=== PATIENT | male | born 1955 | race Caucasian/White ===

== ENCOUNTER 2017-01-08 09:40 | Emergency (ER) | payer OTHER ==
[2017-01-08 09:44] VITALS: BP 145/66; PULSE 114; RESP 18; TEMP 97.7
--- NOTE | 2017-01-08 10:06 | ED ---
General Adult HPI - General Chief complaint: Extremity Injury, Upper Stated complaint: RT SHOULDER PAIN Time Seen by Provider: 01/08/17 09:52 Source: patient, RN notes reviewed Mode of arrival: ambulatory Limitations: no limitations - History of Present Illness Initial comments: 61-year-old male presents to the emergency department with a chief complaint of right shoulder pain. Patient states that on or Sunday he fell as if his shoulder just kind of popped and since she's had pain and difficulty moving the shoulder. Patient states he was just working he does not remember any specific injury. Patient states that they called Dr. Breen and he has an appointment tonight. Patient states that he is just in a lot of discomfort so he thought that he should be evaluated.Patient denies any recent fever, chills, shortness of breath, chest pain, back pain, abdominal pain, nausea vomiting, numbness or tingling, dysuria or hematuria, constipation or diarrhea, headaches or visual changes, or any other current symptoms. - Related Data Home Medications Medication Instructions Recorded Confirmed Bioflex 1 tab PO DAILY 01/25/15 01/27/15 Clopidogrel Bisulfate [Clopidogrel] 75 mg PO DAILY 01/25/15 01/27/15 Metoprolol Tartrate 50 mg PO DAILY 01/25/15 01/27/15 Previous Rx's Medication Instructions Recorded Aspirin 325 mg PO DAILY #60 tab 01/28/15 Atorvastatin [Lipitor] 80 mg PO HS #30 tab 01/28/15 Clopidogrel [Plavix] 75 mg PO DAILY #30 tab 01/28/15 Lisinopril [Zestril] 20 mg PO DAILY #60 tab 01/28/15 Metoprolol Tartrate [Lopressor] 50 mg PO DAILY #60 tab 01/28/15 Nitroglycerin Sl Tabs [Nitrostat] 0.4 mg SUBLINGUAL Q5M PRN #25 tab 01/28/15 Allergies Allergy/AdvReac Type Severity Reaction Status Date / Time No Known Allergies Allergy Verified 01/08/17 09:43 Review of Systems ROS Statement: Those systems with pertinent positive or pertinent negative responses have been documented in the HPI. ROS Other: All systems not noted in ROS Statement are negative. Past Medical History Past Medical History: Blood Disorder, Coronary Artery Disease (CAD), Hyperlipidemia, Hypertension, Myocardial Infarction ([place]), Skin Disorder Additional Past Medical History / Comment(s): PSORIASIS. VARICOSE VEINS. SAW DR STEPHENS RECENTLY R/T SEVERELY ELEV WBC, POSS CCL, BUT NO CURRENT DIAGNOSIS OR TX ; DR Edwin THOMAS AWARE. Last Myocardial Infarction Date:: EST History of Any Multi-Drug Resistant Organisms: None Reported Past Surgical History: Heart Catheterization With Stent, Joint Replacement Additional Past Surgical History / Comment(s): TOTAL DIMA HIPS. STENT X1. Past Anesthesia/Blood Transfusion Reactions: No Reported Reaction Date of Last Stent Placement:: EST Past Psychological History: No Psychological Hx Reported Smoking Status: Unknown if ever smoked Past Alcohol Use History: Occasional - Past Family History Sister(s) Family Medical History: Cancer Father Sister(s) Additional Family Medical History / Comment(s): CARDIAC PROB Mother Additional Family Medical History / Comment(s): CARDIAC HX General Exam - General Exam Comments Initial Comments: General: The patient is awake and alert, in no distress, and does not appear acutely ill. Neck: The neck is supple, there is no tenderness. Cardiovascular: There is a regular rate and rhythm. No murmur, rub or gallop is appreciated. Respiratory: Lungs are clear to auscultation, respirations are non-labored, breath sounds are equal. No wheezes, stridor, rales, or rhonchi. Musculoskeletal: sensation intact with 2+ pulses throughout the right lower extremity. Full range of motion of right wrist and elbow. Patient has normal range of motion of the right shoulder and does appear to have a deformity. Some tenderness noted. No skin trauma. Neurological: CN II-XII intact, There are no obvious motor or sensory deficits. Coordination appears grossly intact. Speech is normal. Skin: Skin is warm and dry and no rashes or lesions are noted. Psychiatric: Normal mood and affect. Limitations: no limitations Course Vital Signs 01/08/17 09:41 Temperature 97.7 F Pulse Rate 114 H Respiratory 18 Rate Blood Pressure 145/66 O2 Sat by Pulse 98 Oximetry Medical Decision Making - Medical Decision Making 61-year-old male presents to the emergency room chief complaint of right shoulder pain.at this time x-ray of the shoulder is reviewed. At this time the is not any acute new process. This time we discussed continued follow-up with Dr. Breen. Patient was given a Narco here prior discharge. Discussed return parameters all patient's questions. He stated he understood and he is given plan. He will be discharged home. - Radiology Data Radiology results: report reviewed, image reviewed Disposition Clinical Impression: Right shoulder pain Disposition: HOME SELF-CARE Condition: Stable Instructions: Shoulder Sprain (ED) Additional Instructions: Please use medication as discussed. Please follow up with family doctor if symptoms have not improved over the next two days. Please return to the emergency room if your symptoms increase or worsen or for any other concerns. Referrals: Temi Cunningham MD [STAFF PHYSICIAN] - 1-2 days Time of Disposition: 10:39
--- NOTE | 2017-01-08 10:31 | XR ---
EXAMINATION TYPE: XR shoulder complete RT DATE OF EXAM: 01/08/2017 COMPARISON: NONE HISTORY: Pain TECHNIQUE: Three views are submitted. FINDINGS: The osseous structures are intact. There is no acute fracture or dislocation. Hypertrophic change of the AC joint noted. Bony density along the greater tuberosity chronic. May be related to previous tr auma. IMPRESSION: 1. Arthropathy of the AC joint 2. Chronic appearing deformity of the greater tuberosity correlate for history of previous trauma.
[2017-01-08] MEDS ORDERED: HYDROcodone/APAP 5-325MG 1 EACH TAB PO STA (10:37)
== END 2017-01-08 11:04 | disposition home or self-care (01) ==
LOC: EC 09:40
DX: M25.511 Pain in right shoulder (principal); I25.2 Old myocardial infarction; I10 Essential (primary) hypertension; Z96.643 Presence of artificial hip joint, bilateral; Z79.01 Long term (current) use of anticoagulants; Z79.899 Other long term (current) drug therapy
CPT/HCPCS: 99283

== ENCOUNTER 2017-01-11 18:55 | Inpatient (IN) | payer OTHER ==
--- NOTE | 2017-01-11 20:08 | ED ---
Weakness HPI - General Chief complaint: Weakness Stated complaint: Weakness Time Seen by Provider: 01/11/17 19:03 Source: patient Mode of arrival: EMS Limitations: no limitations - History of Present Illness Initial comments: 61 years old male was transferred to us from [facility], he presented there for generalized weakness he stated he was in his house was unable to move much he was running fever he felt weak he voided in the bed he already also moved his bowels in the bed. He is very poor historian he was incarcerated for about a year he got out of the children. No cording to the emergency ER his blood work shows very high white count white count is 291,000 though patient himself denies any kind of leukemia history he had a high fever he was tachycardic to give him Zosyn IV and also was given some Cardizem his lactate was quite elevated more than 4 digits of fluids today and they rechecked his lactate is lactate has dropped down to 3.1. On arrival now he feels as well better but still generally weak denies any headache no chest pain no shortness of breath no abdominal pain no symptoms of TIA or CVA either - Related Data Home Medications Medication Instructions Recorded Confirmed Bioflex 1 tab PO DAILY 01/25/15 01/27/15 Clopidogrel Bisulfate [Clopidogrel] 75 mg PO DAILY 01/25/15 01/27/15 Metoprolol Tartrate 50 mg PO DAILY 01/25/15 01/27/15 Previous Rx's Medication Instructions Recorded Aspirin 325 mg PO DAILY #60 tab 01/28/15 Atorvastatin [Lipitor] 80 mg PO HS #30 tab 01/28/15 Clopidogrel [Plavix] 75 mg PO DAILY #30 tab 01/28/15 Lisinopril [Zestril] 20 mg PO DAILY #60 tab 01/28/15 Metoprolol Tartrate [Lopressor] 50 mg PO DAILY #60 tab 01/28/15 Nitroglycerin Sl Tabs [Nitrostat] 0.4 mg SUBLINGUAL Q5M PRN #25 tab 01/28/15 Allergies Allergy/AdvReac Type Severity Reaction Status Date / Time No Known Allergies Allergy Verified 01/08/17 09:43 Review of Systems ROS Statement: Those systems with pertinent positive or pertinent negative responses have been documented in the HPI. ROS Other: All systems not noted in ROS Statement are negative. Past Medical History Past Medical History: Blood Disorder, Coronary Artery Disease (CAD), Hyperlipidemia, Hypertension, Myocardial Infarction ([place]), Skin Disorder Additional Past Medical History / Comment(s): PSORIASIS. VARICOSE VEINS. SAW DR STEPHENS RECENTLY R/T SEVERELY ELEV WBC, POSS CCL, BUT NO CURRENT DIAGNOSIS OR TX ; DR Edwin THOMAS AWARE. Last Myocardial Infarction Date:: EST History of Any Multi-Drug Resistant Organisms: None Reported Past Surgical History: Heart Catheterization With Stent, Joint Replacement Additional Past Surgical History / Comment(s): TOTAL DIMA HIPS. STENT X1. Past Anesthesia/Blood Transfusion Reactions: No Reported Reaction Date of Last Stent Placement:: EST Past Psychological History: No Psychological Hx Reported Smoking Status: Never smoker Past Alcohol Use History: Unable to Obtain - Past Family History Sister(s) Family Medical History: Cancer Father Sister(s) Additional Family Medical History / Comment(s): CARDIAC PROB Mother Additional Family Medical History / Comment(s): CARDIAC HX General Exam - General Exam Comments Initial Comments: General: The patient is awake and alert, GCS is 15 at times he seems a bit confused Skin: Skin is warm and dry and no rashes or lesions are noted. Eye: Pupils are equal, round and reactive to light, extra-ocular movements are intact; there is normal conjunctiva bilaterally. Ears, nose, mouth and throat: There are moist mucous membranes and no oral lesions. Neck: The neck is supple, there is no tenderness or JVD. Cardiovascular: There is a regular rate and rhythm. No murmur, rub or gallop is appreciated. Respiratory: To auscultation bilateral, decreased breath sounds bilateral Gastrointestinal: Soft, non-distended, non-tender abdomen without masses or organomegaly noted. There is no rebound or guarding present. Bowel sounds are unremarkable. Back: There is no tenderness to palpation in the midline. There is no obvious deformity. Musculoskeletal: Normal ROM, no tenderness, There is no pedal edema. There is no calf tenderness or swelling. No cords were appreciated. Neurological: CN II-XII intact, Cranial nerves III through XII are intact. There are no obvious motor or sensory deficits. Coordination appears grossly intact. Speech is normal. Psychiatric: Cooperative, appropriate mood & affect, normal judgment. Limitations: no limitations Course Vital Signs 01/11/17 18:58 Temperature 99.4 F Pulse Rate 88 Respiratory 20 Rate Blood Pressure 106/58 EKG is a sinus sinus rhythm now medical rate is 94 TN interval is 120 QRS duration duration is 90 QT/QTc is 378/472 and 50 mL EKG showed inverted T-wave in lead 3 T-wave flattening in lead 2 and T wave flattening in aVF as well rest of the leads do not show any significant abnormality no ST elevation noticed this EKG Good his labs are done from [facility] creatinine is 1.5 yesterday 727 2331.2 troponin is elevated in [facility] on the both were elevated lactate at 3.3 prior to that it was even higher did for INR 1.3 white count is 291 urinalysis is negative EKG was without any STEMI - Reevaluation(s) Reevaluation #1: 01/11/17 20:12 I spoke with the Dr. Mccurdy inclusion paraeducator physician for [facility], he will see the patient and decide whether patient needs to go on heparin at this point I have ordered another troponin here and obvious dental consult cardiology along with the Dr. Delaney for his elevated white count and Dr. De Anda for elevated LFTs Disposition Clinical Impression: Fever, Sepsis, Elevated troponin, Elevated LFTs, Leukocytosis Disposition: ADMITTED IP TO THIS [facility] Condition: Good Referrals: None,Stated [Primary Care Provider] - 1-2 days
[2017-01-11] MEDS ORDERED: PIPERACILLIN-TAZOBACTAM 3.375 GM in DEXTROSE/WATER 1 50ML.BAG IVPB STA (20:14)
[2017-01-11] MEDS ORDERED: SODIUM CHLORIDE 0.9% 1,000 ML IV ONE ×3 (20:15→22:47)
[2017-01-11] MEDS ORDERED: ASPIRIN 81 MG PO STA (20:20)
[2017-01-11] MEDS ORDERED: NITROGLYCERIN OINT 1 INCH/GM PACKET TOPICAL STA (20:21)
[2017-01-11] MEDS ORDERED: NITROGLYCERIN SL TABS 0.4 MG TAB SUBLINGUAL PRN (20:22)
[2017-01-11 20:55] LABS: Calcium 6.7 mg/dL (8.4-10.2); Potassium 4.1 mmol/L (3.5-5.1); Total Bilirubin 1.1 mg/dL (0.2-1.3); Total Protein 5.1 g/dL (6.3-8.2)
[2017-01-11 20:57] LABS: INR 1.3 (<1.2); Prothrombin Time 12.6 sec (9.0-12.0)
[2017-01-11] MEDS ORDERED: ACETAMINOPHEN TAB 500 MG TAB PO STA (20:59)
[2017-01-11] MEDS ORDERED: ATORVASTATIN 80 MG TAB PO SCH (21:00)
[2017-01-11 21:01] LABS: Anisocytosis Slight; Aty Lym Flag Marked; CH 31.1; CHCM 32.8; HDW 2.96; HGB 8.7 gm/dL (13.0-17.5); MCH 34.6 pg (25.0-35.0); MCHC 36.4 g/dL (31.0-37.0); MCV 95.2 fL (80.0-100.0); Mean Platelet Volume 8.2; RBC 2.52 m/uL (4.30-5.90); RDW 17.1 % (11.5-15.5); WBC (Perox) 209.1
[2017-01-11 21:09] LABS: WBC 231.6 k/uL (3.8-10.6)
--- NOTE | 2017-01-11 21:21 | XR ---
EXAMINATION TYPE: XR chest 2V DATE OF EXAM: 01/11/2017 COMPARISON: 12/17/2014 HISTORY: Weakness and pain TECHNIQUE: Frontal and lateral views of the chest are obtained. FINDINGS: There is coarsening of pulmonary interstitial markings. Heart is mildly enlarged. There ar e chest leads. I see no definite pleural effusion. IMPRESSION: There is new mild pulmonary interstitial edema compared to old exam that could relate to mild heart failure or interstitial pneumonia.
--- NOTE | 2017-01-11 21:22 | XR ---
EXAMINATION TYPE: XR shoulder limited RT DATE OF EXAM: 01/11/2017 COMPARISON: NONE HISTORY: Shoulder pain TECHNIQUE: 2 views FINDINGS: There is spurring at the greater tuberosity of the humerus. There is spurring at the AC keira nt. I see no fracture nor dislocation. IMPRESSION: No acute abnormality of the right shoulder.
[2017-01-11] MEDS ORDERED: LEVOFLOXACIN 500MG-D5W PMX 500 MG in DEXTROSE/WATER 1 100ML.BAG IVPB STA (21:36)
[2017-01-11 21:38] LABS: Add Differential Manual Differential
[2017-01-11 21:40] LABS: Nucleated Red Blood Cells 0 /100 WBC (0-0); Total Cells Counted 200
[2017-01-11 21:41] LABS: Manual Review Performed
--- NOTE | 2017-01-11 22:02 | US ---
EXAMINATION TYPE: US abdomen complete DATE OF EXAM: 01/11/2017 COMPARISON: NONE CLINICAL HISTORY: Pain. EXAM MEASUREMENTS: Liver Length: 18.9 cm Gallbladder Wall: 0.25 cm CBD: 0.29 cm Spleen: 12.7 cm Right Kidney: 11.9 x 3.9 x 5.2 cm Left Kidney: 11.4 x 5.6 x 5.2 cm Pancreas: Obscured by bowel gas Liver: Increased attenuation Gallbladder: wnl Evidence for sonographic Littlejohn's sign: No CBD: wnl Spleen: wnl Right Kidney: No hydronephrosis or masses seen Left Kidney: No hydronephrosis or masses seen Upper IVC: wnl Abd Aorta: wnl Somewhat limited study due to bowel gas and patient unable to roll or hold breath. IMPRESSION: Negative complete abdominal sonogram. No gallstones or dilated ducts.
--- NOTE | 2017-01-11 22:07 | P.HPIM ---
History of Present Illness H&P Date: 01/11/17 (8:30 PM) Chief Complaint: Generalized weakness This is a 61-year-old male with a history of CLL diagnosed 2 years ago, coronary artery disease with 5 stents insertion who was brought in by EMS due to severe generalized weakness and inability to get out from the bed today. 2 years prior to this admission patient was diagnosed with CLL when prior to cardiac catheterization he was noted to have white blood cell count 50,000 with predominance of lymphocytes. At that time close monitoring without active treatment was recommended by hematology. Around that time he underwent cardiac catheterization with insertion of stents in RCA and LAD he had some residual disease in circumflex artery. One year prior to this admission patient was jailed and he was released about a month ago. Patient states that he has not been receiving any medical care in nor he has been seeing any physicians for that time. He can not being adherent to his medications as well. One month prior to admission patient started developing some musculoskeletal pain and aches and most pronounced late in his right shoulder in the lower back. This has been accompanied by easy fatigability and loss of stamina. 3 weeks prior to the admission his right shoulder started hurting even more became swollen and warm and stiff. Patient soon was not able to make any movements in that shoulder due to the pain. Patient reports this to happen suddenly overnight and he could not recall any trauma injury or any other precipitating events. Since then his shoulder beginning progressively worse. He did not try any particular medications for this. He did not find any alleviating factors this. Over the last few days the swelling and pain progressed and swelling developed in his whole right upper extremity. He also noticed pain in his left shoulder without swelling, pain in his lower back knees. For the last 3 days patient been feeling that every bone and muscle is Dennis is been hurting and he was not able to get out of the bed due to severe generalized weakness. He was drinking water but not able to have any food. His be having some night sweats but no Reiger's chills or subjective fevers. He did not experience any chest pain, shortness of breath, abdominal pain, diarrhea, sore throat, headache, blurry vision. Today his friend came by and found him in the situation and since he could not get him up from the bed EMS was called and patient was last prefers to emergency department in outside institution and from there he was transferred to our institution for further workup. In the emergency department he was found to be tachycardic in 120s, with lower blood pressure. His blood work revealed white blood cell count of 213 with predominance of lymphocytes mildly elevated creatinine and BUNs, normal potassium, elevated liver enzymes, elevated troponins. His EKG was not conclusive on any ischemia and he was chest pain or shortness of breath.. Patient was then given vancomycin and Zosyn emergency department lots of IV fluids and admitted for further workup. Review of Systems Constitutional: Reports as per HPI, Reports anorexia, Reports chills, Reports chronic pain, Reports fatigue Eyes: denies blurred vision Ears, nose, mouth and throat: Reports as per HPI Cardiovascular: Reports as per HPI Respiratory: Reports as per HPI Gastrointestinal: Reports as per HPI Genitourinary: Denies hematuria, Denies polyuria, Denies urinary frequency, Denies urinary hesitancy, Denies urinary retention Musculoskeletal: Reports as per HPI Integumentary: Denies pruritus, Denies rash Neurological: Denies burning pain, Denies change in mentation, Denies confusion , Denies double vision Psychiatric: Denies depression Endocrine: Denies cold intolerance, Denies heat intolerance, Denies polyphagia, Denies polyuria Hematologic/Lymphatic: Denies easy bleeding, Denies easy bruising, Denies lymphadenopathy Past Medical History Past Medical History: Blood Disorder, Coronary Artery Disease (CAD), Hyperlipidemia, Hypertension, Myocardial Infarction ([place]), Skin Disorder Additional Past Medical History / Comment(s): PSORIASIS. VARICOSE VEINS. SAW DR STEPHENS RECENTLY R/T SEVERELY ELEV WBC, POSS CCL, BUT NO CURRENT DIAGNOSIS OR TX ; DR Edwin THOMAS AWARE. Last Myocardial Infarction Date:: EST History of Any Multi-Drug Resistant Organisms: None Reported Past Surgical History: Heart Catheterization With Stent, Joint Replacement Additional Past Surgical History / Comment(s): TOTAL DIMA HIPS. STENT X1. Past Anesthesia/Blood Transfusion Reactions: No Reported Reaction Date of Last Stent Placement:: EST Past Psychological History: No Psychological Hx Reported Smoking Status: Never smoker Past Alcohol Use History: Unable to Obtain - Past Family History Sister(s) Family Medical History: Cancer Father Sister(s) Additional Family Medical History / Comment(s): CARDIAC PROB Mother Additional Family Medical History / Comment(s): CARDIAC HX Medications and Allergies Home Medications Medication Instructions Recorded Confirmed Type Clopidogrel Bisulfate [Clopidogrel] 75 mg PO DAILY 01/25/15 01/11/17 History Lisinopril [Zestril] 20 mg PO DAILY #60 tab 01/28/15 01/11/17 Rx Metoprolol Tartrate [Lopressor] 50 mg PO DAILY #60 tab 01/28/15 01/11/17 Rx Nitroglycerin Sl Tabs [Nitrostat] 0.4 mg SUBLINGUAL Q5M PRN #25 tab 01/28/15 Rx [id number] 1 tab PO Q4HR PRN 01/11/17 01/11/17 History [Excedrin] Naproxen Sodium [Aleve] 220 mg PO DAILY PRN 01/11/17 01/11/17 History Allergies Allergy/AdvReac Type Severity Reaction Status Date / Time No Known Allergies Allergy Verified 01/11/17 20:28 Physical Exam Vitals: Vital Signs Temp Pulse Resp BP Pulse Ox 01/11/17 21:23 100.3 F H 96 20 92 L 01/11/17 20:26 103.7 F H 100 20 103/67 92 L 01/11/17 18:58 99.4 F 88 20 106/58 Intake and Output 01/11/17 01/11/17 01/11/17 06:59 14:59 22:59 Other: Weight 68.039 kg Patient Weight 01/12/17 06:59 Weight 68.039 kg At the time of examination his heart rate was in the 80s and regular blood pressure 118 and saturating 96% on 2 L nasal cannula he was afebrile - EENT Eyes: no anicteric sclerae, EOMI, PERRLA - Neck Neck: no lymphadenopathy, normal ROM, no thyromegaly - Respiratory Respiratory: bilateral: CTA - Cardiovascular Rhythm: regular Heart sounds: normal: S1, S2 - Gastrointestinal General gastrointestinal: no hepatomegaly, normal bowel sounds, no organomegaly , soft - Integumentary Integumentary: no jaundiced, no rash - Neurologic Neurologic: CNII-XII intact (Possibly mild facial droop on the left) - Musculoskeletal Could not be tested due to the pain in his joints Right shoulder on inspection severely swollen warm to touch erythematosus edema extending all the way down below the elbow range of motion impossible to perform due to the severe pain. To palpation anteriorly and posteriorly to the shoulder focal pain no pain along the biceps tendon Results CBC & Chem 7: 01/11/17 20:25 01/11/17 20:25 Labs: Abnormal Lab Results - Last 24 Hours (Table) 01/11/17 01/11/17 01/11/17 Range/Units 20:25 20:25 20:25 WBC 231.6 H* (3.8-10.6) k/uL RBC 2.52 L (4.30-5.90) m/uL Hgb 8.7 L (13.0-17.5) gm/dL Hct 24.0 L (39.0-53.0) % RDW 17.1 H (11.5-15.5) % PT (9.0-12.0) sec INR (<1.2) Sodium 129 L (137-145) mmol/L Carbon Dioxide 20 L (22-30) mmol/L BUN 49 H (9-20) mg/dL Creatinine 1.60 H (0.66-1.25) mg/dL Glucose 102 H (74-99) mg/dL Calcium 6.7 L (8.4-10.2) mg/dL AST 686 H (17-59) U/L ALT 314 H (21-72) U/L Troponin I 0.088 H* (0.000-0.034) ng/mL Total Protein 5.1 L (6.3-8.2) g/dL Albumin 2.0 L (3.5-5.0) g/dL 01/11/17 Range/Units 20:25 WBC (3.8-10.6) k/uL RBC (4.30-5.90) m/uL Hgb (13.0-17.5) gm/dL Hct (39.0-53.0) % RDW (11.5-15.5) % PT 12.6 H (9.0-12.0) sec INR 1.3 H (<1.2) Sodium (137-145) mmol/L Carbon Dioxide (22-30) mmol/L BUN (9-20) mg/dL Creatinine (0.66-1.25) mg/dL Glucose (74-99) mg/dL Calcium (8.4-10.2) mg/dL AST (17-59) U/L ALT (21-72) U/L Troponin I (0.000-0.034) ng/mL Total Protein (6.3-8.2) g/dL Albumin (3.5-5.0) g/dL Thrombosis Risk Factor Assmnt - DVT/VTE Prophylaxis DVT/VTE Prophylaxis: Pharmacologic Prophylaxis ordered Assessment and Plan (1) SIRS (systemic inflammatory response syndrome) Narrative/Plan: This is 61-year-old gentleman with multiple medical condition including CLL hyper leukocytosis presenting with fever and tachycardia generalize musculoskeletal pain severely swollen right shoulder and generalized weakness and inability to move due to muscular skeletal pain. Septic workup has been ordered and we will continue for now broad-spectrum antibiotics since patient is immunocompromised and pauses severe risk for sepsis. On the other side there is a possibility of actually patient presenting with polyarticular gout in the background of hyperleukocytosis and rapid development of his right shoulder pain and swelling. Patient will be continued on IV hydration and I will obtain uric acid level. X-ray of right shoulder pending, orthopedic consultants. May need to get further imaging of his right shoulder base in the further evaluation. Also given the extent of swelling of the right upper extremity I will obtain Doppler ultrasound to evaluate for DVT. Check phosphorus level for concern of PLMS Status: Acute (2) Right shoulder pain Narrative/Plan: As mentioned above septic versus inflammatory arthritis worked up. Continue antibiotics, orthopedic service consulted, will obtain uric acid, pain control, may need MRI of the shoulder but will depend on the type of the stents he has, we'll consider NSAIDs versus colchicine. There is mention ultrasound will be ordered for DVT workup Status: Acute (3) Elevated troponin Narrative/Plan: In a patient with severe coronary artery disease in the appearance of medications. It could be due to renal insufficiency and tachycardia sepsis. Patient is asymptomatic and no significant new EKG changes Plan he is to consult cardiology, restart his aspirin, obtain echocardiogram; hold statins due to elevated liver enzymes and hold beta blockers due to hypotension Status: Acute (4) Elevated LFTs Narrative/Plan: This is a relatively new finding. Called Alexx Repeat liver enzymes in the morning Ultrasound of the liver Viral hepatitis workup Check ammonia level Status: Acute (5) Acute kidney injury Narrative/Plan: With mild fluid overload Suspect prerenal rule out obstructive changes Check PVR Patient is making urine potassium is normal I will check CPK Status: Acute (6) Hyperleukocytosis Narrative/Plan: ED discussed with hematology and eats okay for patient to stay in our institution Hematology consulted, rule out transformation to more aggressive lymphoma or leukemia rule out Moreno's syndrome Will check uric acid and phosphorus Check LDH Status: Acute Time with Patient: Greater than 30 (Patient wishes to stay full code. He has a sister who can be decision-maker if he cannot make decisions. I spent 90 minutes in this admission)
[2017-01-11] MEDS ORDERED: ACETAMINOPHEN TAB 325 MG TAB PO PRN (22:09)
[2017-01-11] MEDS ORDERED: NALOXONE 0.4 MG/ML 1 ML VIAL IV PRN (22:09)
[2017-01-11] MEDS ORDERED: KETOROLAC 30 MG/ML 1 ML VIAL IVP STA (22:20)
[2017-01-11] MEDS: SODIUM CHLORIDE 0.45% 1,000 ML IV SCH (22:41)
[2017-01-11] MEDS ORDERED: IV VANCOMYCIN PER PHARMACY 1 EACH MISC MISCELLANE PRN (22:47)
[2017-01-11] MEDS ORDERED: VANCOMYCIN 1,250 MG in SODIUM CHLORIDE 0.9% 250 ML IVPB SCH (23:00)
[2017-01-11 23:28] LABS: Uric Acid 8.1 mg/dL (3.5-8.5)
[2017-01-12] LABS: Hepatitis B Surface Ag Index 0.07
[2017-01-12 00:05] LABS: Hepatitis B Core IgM Index 0.04
[2017-01-12 00:17] LABS: Hepatitis C Virus IgG Ab Negative (Negative); Hepatitis C Virus IgG Index 0.12
[2017-01-12] MEDS: HYDROcodone/APAP 5-325MG 1 EACH TAB PO PRN ×2 (05:08→09:53)
[2017-01-12] MEDS ORDERED: PIPERACILLIN-TAZOBACTAM 3.375 GM in DEXTROSE/WATER 1 50ML.BAG IVPB SCH (08:00)
[2017-01-12] MEDS ORDERED: RX INFO: IV CONTRAST WAS GIVEN 1 EACH MISC MISCELLANE PRN (08:19)
[2017-01-12] MEDS: SODIUM CHLORIDE 0.45% 1,000 ML IV SCH ×2 (08:53→09:43)
[2017-01-12 08:55] LABS: ALT 247 U/L (21-72); AST 383 U/L (17-59); Alkaline Phosphatase 74 U/L (38-126); Anion Gap 10 mmol/L; Blood Urea Nitrogen 60 mg/dL (9-20); Carbon Dioxide 17 mmol/L (22-30); Chloride 103 mmol/L (98-107); Creatine Kinase 180 U/L (55-170); Glucose 155 mg/dL (74-99); LDH 843 U/L (313-618); Magnesium 2.3 mg/dL (1.6-2.3); Non-African American GFR(MDRD) 44 (>60 ml/min/1.73 sqM); Phosphorous 5.5 mg/dL (2.5-4.5); Potassium 4.2 mmol/L (3.5-5.1); Sodium 130 mmol/L (137-145); Total Bilirubin 1.3 mg/dL (0.2-1.3); Total Protein 4.8 g/dL (6.3-8.2)
[2017-01-12 08:56] LABS: Anisocytosis Slight; Aty Lym Flag Marked; CH 29.7; CHCM 30.6; HCT 22.1 % (39.0-53.0); HDW 2.96; HGB 7.3 gm/dL (13.0-17.5); Hypochromasia Moderate; MCHC 32.8 g/dL (31.0-37.0); MCV 97.5 fL (80.0-100.0); Macrocytosis Slight; Mean Platelet Volume 8.7; RBC 2.27 m/uL (4.30-5.90); RDW 16.3 % (11.5-15.5); WBC (Perox) 236.8
[2017-01-12 08:57] LABS: WBC 247.7 k/uL (3.8-10.6)
[2017-01-12] MEDS ORDERED: METOPROLOL TARTRATE 50 MG TAB PO SCH (09:00)
[2017-01-12] MEDS ORDERED: LISINOPRIL 20 MG TAB PO SCH (09:00)
[2017-01-12] MEDS ORDERED: ASPIRIN 325 MG TAB PO SCH (09:00)
[2017-01-12] MEDS ORDERED: CLOPIDOGREL 75 MG TAB PO SCH (09:00)
[2017-01-12 09:19] LABS: Calcium 6.3 mg/dL (8.4-10.2)
--- NOTE | 2017-01-12 09:19 | P.CRDCN ---
History of Present Illness Consult date: 01/12/17 Consult reason: non-Q-wave [place] History of present illness: 61-year-old gentleman with history of coronary artery disease status post angioplasty of left anterior descending coronary artery in the setting of an anterior wall myocardial infarction and moderate disease involving crow right coronary artery and circumflex coronary artery chronic lymphocytic leukemia is admitted to hospital primarily because he had a fall and had some injury to his shoulder. He denies chest pain difficulty in breathing palpitations dizziness or syncope. Patient had cardiac catheterization and angioplasty of crow right coronary artery in 2014 LAD was stented prior to that but there was a 40% lesion within the circumflex coronary artery. The time of my evaluation this morning patient denies chest pain or focal neurological deficits. There is no history of paroxysmal nocturnal dyspnea or orthopnea. Review of Systems Constitutional: Denies chills. Denies fever. Eyes: Denies blurred vision. Denies pain. Ears, nose, mouth and throat: Denies headache. Denies sore throat. Cardiovascular: Denies chest pain. Denies shortness of breath. Respiratory: Denies cough. Gastrointestinal: Denies abdominal pain. Denies diarrhea. Denies nausea. Denies vomiting. Musculoskeletal: Denies myalgias. Muscular skeletal pain Integumentary: Denies pruritus. Denies rash. Neurological: Denies numbness. Denies weakness. Psychiatric: Denies anxiety. Denies depression. Endocrine: Denies fatigue. Denies weight change. Genitourinary: Denies burning, hematuria, frequency of urination. Hematological: No anemia or excess bleeding. Past Medical History Past Medical History: Blood Disorder, Coronary Artery Disease (CAD), Hyperlipidemia, Hypertension, Myocardial Infarction ([place]), Skin Disorder Additional Past Medical History / Comment(s): PSORIASIS. VARICOSE VEINS. SAW DR STEPHENS RECENTLY R/T SEVERELY ELEV WBC, POSS CCL, BUT NO CURRENT DIAGNOSIS OR TX ; DR Edwin THOMAS AWARE. Last Myocardial Infarction Date:: EST History of Any Multi-Drug Resistant Organisms: None Reported Past Surgical History: Heart Catheterization With Stent, Joint Replacement Additional Past Surgical History / Comment(s): TOTAL DIMA HIPS. STENT X1. Past Anesthesia/Blood Transfusion Reactions: No Reported Reaction Date of Last Stent Placement:: EST Past Psychological History: No Psychological Hx Reported Smoking Status: Never smoker Past Alcohol Use History: Unable to Obtain - Past Family History Sister(s) Family Medical History: Cancer Father Sister(s) Additional Family Medical History / Comment(s): CARDIAC PROB Mother Additional Family Medical History / Comment(s): CARDIAC HX Medications and Allergies Home Medications Medication Instructions Recorded Confirmed Type Clopidogrel Bisulfate [Clopidogrel] 75 mg PO DAILY 01/25/15 01/11/17 History Lisinopril [Zestril] 20 mg PO DAILY #60 tab 01/28/15 01/11/17 Rx Metoprolol Tartrate [Lopressor] 50 mg PO DAILY #60 tab 01/28/15 01/11/17 Rx Nitroglycerin Sl Tabs [Nitrostat] 0.4 mg SUBLINGUAL Q5M PRN #25 tab 01/28/15 Rx [id number] 1 tab PO Q4HR PRN 01/11/17 01/11/17 History [Excedrin] Naproxen Sodium [Aleve] 220 mg PO DAILY PRN 01/11/17 01/11/17 History Allergies Allergy/AdvReac Type Severity Reaction Status Date / Time No Known Allergies Allergy Verified 01/11/17 22:48 Physical Exam Vitals: Vital Signs Temp Pulse Pulse Resp BP BP Pulse Ox 01/12/17 04:00 97.6 F 88 18 111/67 92 L 01/12/17 00:00 98.1 F 77 16 80/43 92 L 01/11/17 23:00 97.6 F 92 17 83/44 93 L 01/11/17 22:09 94 L 01/11/17 22:00 100.0 F H 92 20 102/70 94 L 01/11/17 21:23 100.3 F H 96 20 92 L 01/11/17 20:26 103.7 F H 100 20 103/67 92 L 01/11/17 18:58 99.4 F 88 20 106/58 Intake and Output 01/11/17 01/12/17 01/12/17 22:59 06:59 14:59 Intake Total 2120 1525 Balance 2120 1525 Intake: IV 1525 Sodium Chloride 0.45% 1, 525 000 ml @ 75 mls/hr IV . [id number] [facility] Rx#:[id number] Sodium Chloride 0.9% 1, 1000 000 ml @ 999 mls/hr IV . Q1H1M ONE Rx#:[id number] Amount of Fluid Infused ( 2000 ml) Oral 120 Other: Voiding Method Urinal Incontinent # Voids 1 Weight 68.039 kg 56 kg General: The patient is awake and alert, in no distress, and does not appear acutely ill. Skin: Skin is warm and dry and no rashes or lesions are noted. Eye: Pupils are equal, round and reactive to light, extra-ocular movements are intact; there is normal conjunctiva bilaterally. Ears, nose, mouth and throat: There are moist mucous membranes and no oral lesions. Neck: The neck is supple, there is no tenderness or JVD. Cardiovascular: There is a regular rate and rhythm. No murmur, rub or gallop is appreciated. Respiratory: Lungs are clear to auscultation, respirations are non-labored, breath sounds are equal. Gastrointestinal: Soft, non-distended, non-tender abdomen without masses or organomegaly noted. There is no rebound or guarding present. Bowel sounds are unremarkable. Back: There is no tenderness to palpation in the midline. There is no obvious deformity. Musculoskeletal: Normal ROM, no tenderness, There is no pedal edema. There is no calf tenderness or swelling. Extremities: No edema. Vascular: Femoral pulse is normal. Posterior tibial pulses are normal .Dorsalis pedis is palpable. Neurological: CN II-XII intact. There are no obvious motor or sensory deficits. Speech is normal. Psychiatric: Cooperative, appropriate mood & affect, normal judgment. Results 01/12/17 08:13 01/11/17 20:25 Cardiac Enzymes 01/11/17 01/11/17 Range/Units 20:25 20:25 AST 686 H (17-59) U/L Troponin I 0.088 H* (0.000-0.034) ng/mL Coagulation 01/11/17 Range/Units 20:25 PT 12.6 H (9.0-12.0) sec CBC 01/11/17 01/12/17 Range/Units 20:25 08:13 WBC 231.6 H* 247.7 H* (3.8-10.6) k/uL RBC 2.52 L 2.27 L (4.30-5.90) m/uL Hgb 8.7 L 7.3 L (13.0-17.5) gm/dL Hct 24.0 L 22.1 L (39.0-53.0) % Plt Count 164 145 L (150-450) k/uL Comprehensive Metabolic Panel 01/11/17 Range/Units 20:25 Sodium 129 L (137-145) mmol/L Potassium 4.1 (3.5-5.1) mmol/L Chloride 102 (98-107) mmol/L Carbon Dioxide 20 L (22-30) mmol/L BUN 49 H (9-20) mg/dL Creatinine 1.60 H (0.66-1.25) mg/dL Glucose 102 H (74-99) mg/dL Calcium 6.7 L (8.4-10.2) mg/dL AST 686 H (17-59) U/L ALT 314 H (21-72) U/L Alkaline Phosphatase 82 (38-126) U/L Total Protein 5.1 L (6.3-8.2) g/dL Albumin 2.0 L (3.5-5.0) g/dL Current Medications Generic Name Dose Route Start Last Admin Trade Name Freq PRN Reason Stop Dose Admin Acetaminophen 325 mg 01/11/17 22:09 Tylenol Tab PO Q6HR PRN Mild Pain or Fever > 100.5 Hydrocodone Bitart/Acetaminophen 1 each 01/11/17 22:09 01/12/17 05:08 [place] 5-325 PO 1 each Q4HR PRN Administration Moderate Pain Aspirin 325 mg 01/12/17 09:00 Aspirin PO DAILY [facility] Clopidogrel Bisulfate 75 mg 01/12/17 09:00 Plavix PO DAILY [facility] Heparin Sodium (Porcine) 5,000 unit 01/12/17 10:00 Heparin SQ Q8HR [facility] Piperacillin/Tazobactam/ 50 mls @ 12.5 mls/hr 01/12/17 08:00 Dextrose 3.375 gm/ IV Solution IVPB Q8HR [facility] Sodium Chloride 1,000 mls @ 150 mls/hr 01/11/17 22:15 01/12/17 08:53 Saline 0.45% IV Not Given .Q6H40M [facility] Vancomycin HCl 1,250 mg/ 250 mls @ 125 mls/hr 01/12/17 18:00 Sodium Chloride IVPB Q24H [facility] Miscellaneous Information 1 each 01/12/17 08:19 Rx Info: Iv Contrast Was Given MISCELLANE 01/14/17 08:19 DAILY PRN Per Protocol Naloxone HCl 0.2 mg 01/11/17 22:09 Narcan IV Q2M PRN Opioid Reversal Intake and Output 01/11/17 01/12/17 01/12/17 22:59 06:59 14:59 Intake Total 2120 1525 Balance 2120 1525 Intake: IV 1525 Sodium Chloride 0.45% 1, 525 000 ml @ 75 mls/hr IV . [id number] [facility] Rx#:[id number] Sodium Chloride 0.9% 1, 1000 000 ml @ 999 mls/hr IV . Q1H1M ONE Rx#:[id number] Amount of Fluid Infused ( 2000 ml) Oral 120 Other: Voiding Method Urinal Incontinent # Voids 1 Weight 68.039 kg 56 kg 01/12/17 08:13 01/11/17 20:25 EKG Interpretations (text) Normal sinus rhythm with nonspecific ST-T wave changes Assessment and Plan Plan: Elevated troponin Systemic inflammatory response syndrome Chronic lymphocytic leukemia Multivessel coronary artery disease I will review the echocardiogram. Obtain another set of troponin. The next set of troponin becomes elevated we will see if he needs to do another angiogram whenever his systemic issues resolve. In the meantime he'll be managed with optimal medical therapy.
[2017-01-12 09:26] LABS: INR 1.4 (<1.2); Partial Thromboplastin Time 28.3 sec (22.0-30.0); Prothrombin Time 13.3 sec (9.0-12.0)
[2017-01-12] MEDS ORDERED: METOPROLOL TARTRATE 25 MG TAB PO SCH (09:30)
[2017-01-12] MEDS ORDERED: ISOSORBIDE MONONITRATE ER 30 MG TAB.ER.24H PO SCH (09:30)
[2017-01-12 09:38] LABS: Add Differential Manual Differential
[2017-01-12 09:50] LABS: Vitamin B12 >1000 pg/mL (239-931)
[2017-01-12 09:59] VITALS: TEMP 97.8
[2017-01-12] MEDS ORDERED: HEPARIN SODIUM,PORCINE 5,000 UNIT/ML 1 ML VIAL SQ SCH (10:00)
[2017-01-12] MEDS ORDERED: SODIUM CHLORIDE 0.9% 1,000 ML IV ONE ×2 (10:05→14:12)
[2017-01-12 10:11] LABS: Manual Review Performed; Nucleated Red Blood Cells 0 /100 WBC (0-0); Total Cells Counted 100
[2017-01-12] MEDS ORDERED: SODIUM CHLORIDE 0.9% 1,000 ML IV SCH (10:15)
--- NOTE | 2017-01-12 10:15 | P.PN ---
Subjective Principal diagnosis: weakness Patient is a 61-year-old male with a past medical history of CLL, coronary artery disease status post stenting, dyslipidemia, and hypertension who is brought in by EMS due to generalized weakness and inability to get out of bed. In the ER he was found to have a leukocytosis of 230, elevated creatinine of 1.6, and elevated liver enzymes. He had a chest x-ray which showed possible interstitial pneumonia. He had an x-ray of his shoulder that showed diffuse swelling, but no fracture. The patient had fallen a few days ago. He had an abdominal ultrasound that was unremarkable. His troponins were noted to be slightly elevated. He was also found to be hypotensive. His fever was 100.3. He was started on IV fluids. He was given a dose of Vanco and Zosyn. Arrangements were made for him to be admitted to the selective care unit. His blood pressure improved after 3 units of IV fluids were given. On initial physical exam he had bilateral lower extremity weakness. There was concern for possible cord compression versus Guillain-Díaz syndrome. He has not had any urinary retention or bladder incontinence. He had decreased reflexes in the lower extremities and no clonus. He is also been struggling with confusion and is unsure of dating. He was in custodial for approximately 12 months and was released one month ago. He had no medical care during that time. His last white blood cell count here was in 2014 and was 50. Patient seen and examined at bedside. He complains of being weak all over with weakness now settling into his left arm. He denies any chest pain. He does complain of some shortness of breath. He denies nausea, vomiting, or constipation. He denies any bowel or bladder incontinence. Objective - Vital Signs Vital signs: Vital Signs Temp 97.6 F 01/12/17 04:00 Pulse 88 01/12/17 04:00 Resp 18 01/12/17 04:00 BP 111/67 01/12/17 04:00 Pulse Ox 92 L 01/12/17 04:00 Intake & Output 01/11/17 01/12/17 01/12/17 18:59 06:59 18:59 Intake Total 3645 Balance 3645 Weight 68.039 kg 56 kg Intake: IV 1525 Sodium Chloride 0.45% 1, 525 000 ml @ 75 mls/hr IV . [id number] [facility] Rx#:[id number] Sodium Chloride 0.9% 1, 1000 000 ml @ 999 mls/hr IV . Q1H1M [facility] Rx#:[id number] Amount of Fluid Infused ( 2000 ml) Oral 120 Other: Voiding Method Urinal Incontinent # Voids 1 - Exam General: + Toxic, moderate distress, appears at stated age Derm: no rashes, no lesions Head: atraumatic, normocephalic, symmetric Eyes: EOMI, no lid lag, anicteric sclera ENT: no post nasal drip, no thrush Mouth: no lip lesion, mucus membranes moist Cardiovascular: S1S2 reg, no murmur, positive posterior tibial pulse bilateral, Lungs: Rhonchi bilateral bases, no rhonchi, no rales , no accessory muscle use Abdominal: soft, nontender to palpation, no guarding, no appreciable organomegaly Ext: + Atrophy of lower extremity flexors, no edema, no contractures Neuro: CN II-XI grossly intact, muscle strength 2 out of 5 in bilateral lower extremities, 3 out of 5 in left upper extremity, unable to obtain in right upper extremity secondary to pain Psych: Alert, oriented, flat affect - Labs CBC & Chem 7: 01/12/17 08:13 01/12/17 08:13 Labs: Abnormal Lab Results - Last 24 Hours (Table) 01/11/17 01/11/17 01/11/17 Range/Units 20:25 20:25 20:25 WBC 231.6 H* (3.8-10.6) k/uL RBC 2.52 L (4.30-5.90) m/uL Hgb 8.7 L (13.0-17.5) gm/dL Hct 24.0 L (39.0-53.0) % RDW 17.1 H (11.5-15.5) % Lymphocytes # (Manual) 226.97 H (1.0-4.8) k/uL PT (9.0-12.0) sec INR (<1.2) Sodium 129 L (137-145) mmol/L Carbon Dioxide 20 L (22-30) mmol/L BUN 49 H (9-20) mg/dL Creatinine 1.60 H (0.66-1.25) mg/dL Glucose 102 H (74-99) mg/dL Calcium 6.7 L (8.4-10.2) mg/dL AST 686 H (17-59) U/L ALT 314 H (21-72) U/L Ammonia (<30) umol/L Troponin I 0.088 H* (0.000-0.034) ng/mL Total Protein 5.1 L (6.3-8.2) g/dL Albumin 2.0 L (3.5-5.0) g/dL 01/11/17 01/11/17 Range/Units 20:25 22:45 WBC (3.8-10.6) k/uL RBC (4.30-5.90) m/uL Hgb (13.0-17.5) gm/dL Hct (39.0-53.0) % RDW (11.5-15.5) % Lymphocytes # (Manual) (1.0-4.8) k/uL PT 12.6 H (9.0-12.0) sec INR 1.3 H (<1.2) Sodium (137-145) mmol/L Carbon Dioxide (22-30) mmol/L BUN (9-20) mg/dL Creatinine (0.66-1.25) mg/dL Glucose (74-99) mg/dL Calcium (8.4-10.2) mg/dL AST (17-59) U/L ALT (21-72) U/L Ammonia 34 H (<30) umol/L Troponin I (0.000-0.034) ng/mL Total Protein (6.3-8.2) g/dL Albumin (3.5-5.0) g/dL Assessment and Plan Plan: #CLL with marked leukocytosis and signs of leukostasis ( confusion, RADHA, myocardial ischemia) -A repeat stat CBC with differential, LDH, PT, PTT, phos and calcium level - oncology paged awaiting callback regarding transfer, hydroxyurea treatment, or other care. - IVF - repeat labs with uric acid at 1100 - poor prognosis # Ascending weakness -Considerations could be Guillain-Daíz syndrome versus central nervous system syndrome involvement versus cord compression secondary to tumor - Stat CT thoracic and lumbar spine, patient believes he can't have an MRI secondary to prior stent placement - neurology consultation #Acute kidney injury -Maybe a CAD versus chronic kidney disease of unknown baseline creatinine -Continue with IV fluid resuscitation -Hold lisinopril, naproxen, and Excedrin -Follow labs -Anticipate increasing creatinine secondary to contrast needed to rule out cord compression for CT and at this point in time benefits outweigh risks #Transaminitis -Likely secondary to hepatic congestion from leukostasis -Liver ultrasound negative -Hepatitis panel negative -Continue to follow liver enzymes #Elevated troponin -Suspect secondary to leukostasis -Cardiology recommendations appreciated -Repeat Troponin pending -Continue Plavix and aspirin #Sirs with hypotension, no definitive source at this point in time -Continue with Vanco and Zosyn -Repeat chest x-ray -Blood cultures -Urinalysis -IV fluids -Old home metoprolol, lisinopril #Right shoulder swelling -Orthopedic consultation -X-ray without definitive process -Await ultrasound of right upper extremity -Pain control #Non-anion gap metabolic acidosis -Possibly secondary to a cation versus evolving sepsis -IVF - repeat BMP at 11 #Anemia and thrombocytopenia -Likely secondary to bone marrow infiltration of CLL -follow CBC Chronic: HTN HLD DVT prophylaxis: Heparin Discussed with: Patient, nursing, Ernestine thomas nurse practitioner Anticipated discharge: Unknown Anticipated discharge place: Unknown A total of 60 minutes of critical care time was spent in the care of this patient throughout the morning including discussing case with consultants.
--- NOTE | 2017-01-12 10:17 | XR ---
EXAMINATION TYPE: XR chest 1V portable DATE OF EXAM: 01/12/2017 COMPARISON: 01/11/2017 INDICATION: Short of breath right shoulder pain TECHNIQUE: Single frontal view of the chest is obtained. FINDINGS: The heart size is mildly prominent. The pulmonary vasculature is upper limits of normal. No suspicious consolidation is evident. Some mild increased lung markings along the right diaphragm and in the retrocardiac region may be present which are nonspecific most likely related to subsegment al atelectasis. IMPRESSION: 1. Mild cardiomegaly. 2. Mild subsegmental atelectasis bilateral lung bases.
--- NOTE | 2017-01-12 11:36 | ECHOF ---
Referral Reason:elevated troponin MEASUREMENTS -------- HEIGHT: 172.7 cm WEIGHT: 68.0 kg BP: 111/67 IVSd: 1.2 cm (0.6 - 1.1) LVIDd: 4.4 cm (3.9 - 5.3) LVPWd: 1.3 cm (0.6 - 1.1) IVSs: 2.1 cm LVIDs: 2.1 cm LVPWs: 2.1 cm Ao Diam: 3.5 cm (2.0 - 3.7) AV Cusp: 2.2 cm (1.5 - 2.6) LA Diam: 3.6 cm (2.7 - 3.8) MV EXCURSION: 18.395 mm (> 18.000) MV EF SLOPE: 115 mm/s (70 - 150) EPSS: 0.3 cm MV E Jatinder: 0.60 m/s MV DecT: 168 ms MV A Jatinder: 0.66 m/s MV E/A Ratio: 0.91 RAP: 5.00 mmHg RVSP: 17.36 mmHg FINDINGS -------- Resting tachycardia (HR>100bpm). This was a technically difficult study with suboptimal views. The left ventricular size is normal. There is mild concentric left ventricular hypertrophy. Overall left ventricular systolic function is normal with, an EF between 55 - 60 %. The right ventricle is normal in size and function. The left atrium is normal in size. The right atrium is normal in size. Aortic valve is trileaflet and is mildly thickened. The mitral valve leaflets are mildly thickened. Mild mitral regurgitation is present. Mild tricuspid regurgitation present. The right ventricular systolic pressure, as measured by Doppler, is 17.36mmHg. Pulmonic valve appears structurally normal. The aortic root size is normal. There is a trivial pericardial effusion present. CONCLUSIONS -------- 1. Resting tachycardia (HR>100bpm). 2. The mitral valve leaflets are mildly thickened. 3. Mild mitral regurgitation is present. 4. Mild tricuspid regurgitation present. 5. The right ventricular systolic pressure, as measured by Doppler, is 17.36mmHg. 6. Pulmonic valve appears structurally normal. 7. The aortic root size is normal. 8. There is a trivial pericardial effusion present. 9. This was a technically difficult study with suboptimal views. 10. The left ventricular size is normal. 11. There is mild concentric left ventricular hypertrophy. 12. Overall left ventricular systolic function is normal with, an EF between 55 - 60 %. 13. The right ventricle is normal in size and function. 14. The left atrium is normal in size. 15. The right atrium is normal in size. 16. Aortic valve is trileaflet and is mildly thickened. MARINE EQUIPMENT ENGINEER: Ivon Jackson RDCS
--- NOTE | 2017-01-12 11:44 | US ---
EXAMINATION TYPE: US venous doppler duplex UE RT DATE OF EXAM: 01/12/2017 COMPARISON: None CLINICAL HISTORY: RUE swelling. Poor historian. Right arm pain and swelling SIDE PERFORMED: Right Right Arm: Appears negative for DVT Incidental finding: Multiple lymph node appearing lesions seen in right neck IMPRESSION: 1. Right upper extremity negative for deep venous thrombosis. 2. Superficial edema is present. 3. Note is made of lymphadenopathy within the visualized neck region during this exam.
--- NOTE | 2017-01-12 12:17 | CT ---
EXAMINATION TYPE: CT shoulder RT wo con DATE OF EXAM: 01/12/2017 COMPARISON: NONE HISTORY: Severe pain and swelling. pt unable to put his arms up.poor historian. CT DLP: 384.50 mGycm Automated exposure control for dose reduction was used. FINDINGS: Extensive soft tissue edema surrounding the shoulder. Artifact limits assessment. Well-corticated bon y density medial to the joint space appears to be related to chronic trauma. Arthropathy of the AC dyan int. There is a acromial spur which may be result in some degree of impingement. Bony densities along the greater tuberosity appear well corticated and appear to be chronic. Ill-defined infiltrates are seen within the lungs with some areas of nodularity. Multiple small pulmo nary nodules are seen correlate for history of malignancy. Consolidation and small pleural effusion n oted. Septic emboli a consideration. Visualized rib cage is intact. Scapula appears intact. Extensive pathologic adenopathy within the axi lla. IMPRESSION: NO ACUTE FRACTURE. THERE IS NONSPECIFIC SOFT TISSUE EDEMA. CORE-LIKE LIKELY. ADDITIONALLY THERE ARE MULTIPLE PULMONARY NODULE SUSPICIOUS FOR NEOPLASM. AC JOINT ARTHROPATHY WITH ACROMIAL SPUR. CORRELATE FOR CHRONIC ROTATOR CUFF DISEASE. EXTENSIVE AXILLA RY ADENOPATHY.
--- NOTE | 2017-01-12 12:18 | P.CNOR ---
History of Present Illness - [facility] Consult date: 01/12/17 Consult reason: joint pain History of present illness: This is a 61-year-old male who is seen and evaluated at [facility] for multiple issues. Patient initially came to the hospital with regards to increasing pain in his right shoulder along with generalized weakness and fatigue. Patient was recently seen in the hospital on 01/08/2017 with regards to pain in his shoulder. Apparently the patient had a fall a few days prior to that, and since then he had noticed increasing pain. Patient is seen Dr. Breen for previous surgery involving the bilateral hips. He did have a scheduled appointment or Dr. Breen for evaluation of the shoulder. Patient states that he' s had a previous rotator cuff issue involving the right shoulder. Over the last few days since his recent visit to the ER, he's noticed increasing pain along with redness swelling and warmth to that right shoulder. It started in the shoulder he states, but his migrated down in the arm, elbow and forearm. Patient states over the last month or so he's noticed this increasing fatigue and weakness. Over the last week or so it is progressively gotten worse, the patient has not been able to get out of bed. He also notes multiple layers of generalized multiple lab tests and imaging studies have been done on this patient. Medically, the patient isn't very musculoskeletal pain. Apparently patient has a history of CLL and has seen hematology/oncology for this. Patient also has a very significant heart history, with previous stenting procedures, most recently was in 2014. Since being in the hospital, multiple imaging and lab tests have been done. Medically, the patient status is very severe at this time. He is getting a full workup with multiple medical specialties on consult, including infectious disease, cardiology, hematology/oncology, orthopedics, nephrology. They also are considering a possible neurology consult due to bilateral lower extremity weakness. With regards to the patient's shoulder, he notes significant pain noted more over the anterior aspect of the shoulder itself. He also notes some pain that tends down into the arm and elbow. Patient states that he has had a rotator cuff problem in the past, but he cannot further describe it. Sides the fall that happened about a week ago, there was no other trauma. Patient's motion is very limited due to the pain. Patient denies any significant pain involving the elbow, hand or wrist. Review of Systems Constitutional: Reports as per HPI Past Medical History Past Medical History: Blood Disorder, Coronary Artery Disease (CAD), Hyperlipidemia, Hypertension, Myocardial Infarction (OR), Skin Disorder Additional Past Medical History / Comment(s): PSORIASIS. VARICOSE VEINS. SAW DR STEPHENS RECENTLY R/T SEVERELY ELEV WBC, POSS CCL, BUT NO CURRENT DIAGNOSIS OR TX ; DR Edwin THOMAS AWARE. Last Myocardial Infarction Date:: EST History of Any Multi-Drug Resistant Organisms: None Reported Past Surgical History: Heart Catheterization With Stent, Joint Replacement Additional Past Surgical History / Comment(s): TOTAL DIMA HIPS. STENT X1. Past Anesthesia/Blood Transfusion Reactions: No Reported Reaction Date of Last Stent Placement:: EST Past Psychological History: No Psychological Hx Reported Smoking Status: Never smoker Past Alcohol Use History: Unable to Obtain - Past Family History Sister(s) Family Medical History: Cancer Father Sister(s) Additional Family Medical History / Comment(s): CARDIAC PROB Mother Additional Family Medical History / Comment(s): CARDIAC HX Medications and Allergies Home Medications Medication Instructions Recorded Confirmed Type Clopidogrel Bisulfate [Clopidogrel] 75 mg PO DAILY 01/25/15 01/11/17 History Lisinopril [Zestril] 20 mg PO DAILY #60 tab 01/28/15 01/11/17 Rx Metoprolol Tartrate [Lopressor] 50 mg PO DAILY #60 tab 01/28/15 01/11/17 Rx Nitroglycerin Sl Tabs [Nitrostat] 0.4 mg SUBLINGUAL Q5M PRN #25 tab 01/28/15 Rx [id number]-[id number] [id number] 1 tab PO Q4HR PRN 01/11/17 01/11/17 History [Excedrin] Naproxen Sodium [Aleve] 220 mg PO DAILY PRN 01/11/17 01/11/17 History Allergies Allergy/AdvReac Type Severity Reaction Status Date / Time No Known Allergies Allergy Verified 01/11/17 22:48 Physical Examination Right upper extremity: No obvious open lesions or sores noted throughout the extremity. There is obvious soft tissue swelling present surrounding the right shoulder, also edema noted in the upper arm and both biceps and tricep area, and also extends into the forearm. There is some erythema noted around the shoulder and also trans- dominant lower arm. Guarding noted on exam. His range of motion is very limited with shoulder. Passive motion reproduces pain over the anterior collateral joint line. He's tender with palpation of the anterior ulnohumeral joint line. Unable to appreciate any significant area of fluctuance that would represent an abscess at this time. Sensory exam to light touch throughout the right upper extremity is intact. His radial pulses 2+. Strength testing was not assessed Results - Labs Labs: Abnormal Lab Results - Last 24 Hours (Table) 01/11/17 01/11/17 01/11/17 Range/Units 20:25 20:25 20:25 WBC 231.6 H* (3.8-10.6) k/uL RBC 2.52 L (4.30-5.90) m/uL Hgb 8.7 L (13.0-17.5) gm/dL Hct 24.0 L (39.0-53.0) % RDW 17.1 H (11.5-15.5) % Plt Count (150-450) k/uL Lymphocytes # (Manual) 226.97 H (1.0-4.8) k/uL ESR (0-15) mm/hr PT (9.0-12.0) sec INR (<1.2) Sodium 129 L (137-145) mmol/L Carbon Dioxide 20 L (22-30) mmol/L BUN 49 H (9-20) mg/dL Creatinine 1.60 H (0.66-1.25) mg/dL Glucose 102 H (74-99) mg/dL Calcium 6.7 L (8.4-10.2) mg/dL Phosphorus (2.5-4.5) mg/dL AST 686 H (17-59) U/L ALT 314 H (21-72) U/L Ammonia (<30) umol/L Lactate Dehydrogenase (313-618) U/L Creatine Kinase (55-170) U/L Troponin I 0.088 H* (0.000-0.034) ng/mL Total Protein 5.1 L (6.3-8.2) g/dL Albumin 2.0 L (3.5-5.0) g/dL Vitamin B12 (239-931) pg/mL 01/11/17 01/11/17 01/12/17 Range/Units 20:25 22:45 08:13 WBC (3.8-10.6) k/uL RBC (4.30-5.90) m/uL Hgb (13.0-17.5) gm/dL Hct (39.0-53.0) % RDW (11.5-15.5) % Plt Count (150-450) k/uL Lymphocytes # (Manual) (1.0-4.8) k/uL ESR (0-15) mm/hr PT 12.6 H (9.0-12.0) sec INR 1.3 H (<1.2) Sodium 130 L (137-145) mmol/L Carbon Dioxide 17 L (22-30) mmol/L BUN 60 H (9-20) mg/dL Creatinine 1.60 H (0.66-1.25) mg/dL Glucose 155 H (74-99) mg/dL Calcium 6.3 L* (8.4-10.2) mg/dL Phosphorus 5.5 H (2.5-4.5) mg/dL AST 383 H (17-59) U/L ALT 247 H (21-72) U/L Ammonia 34 H (<30) umol/L Lactate Dehydrogenase 843 H (313-618) U/L Creatine Kinase 180 H (55-170) U/L Troponin I (0.000-0.034) ng/mL Total Protein 4.8 L (6.3-8.2) g/dL Albumin 1.9 L (3.5-5.0) g/dL Vitamin B12 >1000 H (239-931) pg/mL 01/12/17 01/12/17 01/12/17 Range/Units 08:13 08:13 08:13 WBC 247.7 H* (3.8-10.6) k/uL RBC 2.27 L (4.30-5.90) m/uL Hgb 7.3 L (13.0-17.5) gm/dL Hct 22.1 L (39.0-53.0) % RDW 16.3 H (11.5-15.5) % Plt Count 145 L (150-450) k/uL Lymphocytes # (Manual) 247.70 H (1.0-4.8) k/uL ESR (0-15) mm/hr PT 13.3 H (9.0-12.0) sec INR 1.4 H (<1.2) Sodium (137-145) mmol/L Carbon Dioxide (22-30) mmol/L BUN (9-20) mg/dL Creatinine (0.66-1.25) mg/dL Glucose (74-99) mg/dL Calcium (8.4-10.2) mg/dL Phosphorus (2.5-4.5) mg/dL AST (17-59) U/L ALT (21-72) U/L Ammonia (<30) umol/L Lactate Dehydrogenase (313-618) U/L Creatine Kinase (55-170) U/L Troponin I 0.097 H* (0.000-0.034) ng/mL Total Protein (6.3-8.2) g/dL Albumin (3.5-5.0) g/dL Vitamin B12 (239-931) pg/mL 01/12/17 Range/Units 08:13 WBC (3.8-10.6) k/uL RBC (4.30-5.90) m/uL Hgb (13.0-17.5) gm/dL Hct (39.0-53.0) % RDW (11.5-15.5) % Plt Count (150-450) k/uL Lymphocytes # (Manual) (1.0-4.8) k/uL ESR 115 H (0-15) mm/hr PT (9.0-12.0) sec INR (<1.2) Sodium (137-145) mmol/L Carbon Dioxide (22-30) mmol/L BUN (9-20) mg/dL Creatinine (0.66-1.25) mg/dL Glucose (74-99) mg/dL Calcium (8.4-10.2) mg/dL Phosphorus (2.5-4.5) mg/dL AST (17-59) U/L ALT (21-72) U/L Ammonia (<30) umol/L Lactate Dehydrogenase (313-618) U/L Creatine Kinase (55-170) U/L Troponin I (0.000-0.034) ng/mL Total Protein (6.3-8.2) g/dL Albumin (3.5-5.0) g/dL Vitamin B12 (239-931) pg/mL H & H 01/11/17 01/12/17 Range/Units 20:25 08:13 Hgb 8.7 L 7.3 L (13.0-17.5) gm/dL Hct 24.0 L 22.1 L (39.0-53.0) % Coagulation 01/11/17 01/12/17 Range/Units 20:25 08:13 INR 1.3 H 1.4 H (<1.2) Result Diagrams: 01/12/17 08:13 01/12/17 08:13 - Diagnostic results Shoulder x-ray: report reviewed, image reviewed Assessment and Plan Plan: Imaging: Multiple views of the right shoulder obtained, no obvious acute fractures or dislocations are present. No other osseous abnormalities noted on exam Assessment: 1. Right shoulder pain 2. Status post fall from standing 3. Possible septic arthritis versus gouty arthritis versus impingement syndrome 4. Multiple medical comorbidities Plan: 1. Dr. Leung was available today to examine the patient and review the images. Further imaging studies were ordered, and MRI was initially the plan, but due to his previous stents and states that he was told he cannot have MRI in that region due to the stents, we will order a computed tomography scan with no contrast. Computed tomography scan will evaluate for any fluid pocket present in the right shoulder, awaiting results 2. Due to the patient's multiple medical comorbidities and current status, very hard to determine the exact etiology of this right shoulder pain. 3. If computed tomography scan does show area of fluid, possible surgical intervention will be needed. We will await results of the computed tomography scan, we will also need patient's medical status to improve. 4. Pain control 5. GI and DVT prophylaxis per medical recommendation 6. Other medical microbiologist recommendations 7. Further recommendations follow Time with Patient: Less than 30
--- NOTE | 2017-01-12 12:20 | CT ---
EXAMINATION TYPE: CT thor lumbar spine w con DATE OF EXAM: 01/12/2017 COMPARISON: NONE HISTORY: Severe pain and swelling. pt unable to put his arms up.poor historian.prev rt shoulder xray on syn CT DLP: 1923.40 mGycm Automated exposure control for dose reduction was used. CONTRAST: Performed with IV Contrast, patient injected with 80 mL of Visipaque 320. FINDINGS: Within the visualized portions of the lungs given the limited [id number] there are numerable bilat eral pulmonary nodules and small pleural effusions with associated bibasilar compressive atelectasis. Calcified pleural plaquing is also noted, left greater than right. Thoracic spine: No thoracic compression deformity is seen. Bridging anterior osteophytes are present throughout the thoracolumbar spine. No spinal canal stenosis is seen within the thoracic spine. No sandra spicious osseous lesions are seen. Within the visualized posterior ribs no acute fracture is present. No significant neural foraminal narrowing at any thoracic level. Motion artifact is appreciated, how ever no chris disc herniation is present given the limitations. Lumbar spine: Lumbar vertebral bodies maintain normal height and alignment. No discrete herniation is appreciated. At L3-S1 there are broad-based disc bulges and facet arthropathy without neural foramin al narrowing or spinal canal stenosis. IMPRESSION: 1. NO EVIDENCE OF ACUTE FRACTURE, DISLOCATION OR SUSPICIOUS OSSEOUS LESION. 2. INNUMERABLE PULMONARY NODULES WITHIN THE VISUALIZED PORTIONS OF THE LUNGS WHICH COULD BE INFECTIOU S/INFLAMMATORY OR MORE LIKELY NEOPLASTIC. CORRELATE WITH PATIENT'S SYMPTOMS AND LABORATORY VALUES WELL CLINICAL HISTORY. 3. PARTIALLY VISUALIZED AT LEAST SMALL PLEURAL EFFUSIONS WITH ASSOCIATED COMPRESSIVE ATELECTASIS AND BILATERAL CALCIFIED PLEURAL PLAQUES. 4. MILD MULTILEVEL DEGENERATIVE CHANGE OF THE THORACIC AND LUMBAR SPINE WITHOUT DISCRETE HERNIATION O R SPINAL CANAL STENOSIS.
[2017-01-12 12:34] LABS: CH 29.6; CHCM 31.5; HDW 2.87; Hypochromasia Slight; MCH 31.7 pg (25.0-35.0); MCHC 33.5 g/dL (31.0-37.0); MCV 94.5 fL (80.0-100.0); Mean Platelet Volume 8.8; RBC 2.03 m/uL (4.30-5.90); RDW 15.8 % (11.5-15.5)
[2017-01-12 12:37] LABS: INR 1.5 (<1.2); Prothrombin Time 14.3 sec (9.0-12.0)
[2017-01-12 12:38] LABS: WBC 229.6 k/uL (3.8-10.6)
--- NOTE | 2017-01-12 12:43 | XR ---
EXAMINATION TYPE: XR lumbar spine 2 or 3V DATE OF EXAM: 01/12/2017 COMPARISON: NONE HISTORY: Fall, low back pain TECHNIQUE: Three-view lumbar spine FINDINGS: There is loss of disc height L5-S1. Remaining disc heights are preserved. Spondylosis is pr esent. Vascular calcifications within the aorta. There 5 lumbar-type vertebral bodies. Pedicles are i ntact. IMPRESSION: 1. Degenerative disc change L5-S1. 2. Spondylosis
--- NOTE | 2017-01-12 12:44 | XR ---
EXAMINATION TYPE: XR cervical spine comp DATE OF EXAM: 01/12/2017 COMPARISON: NONE HISTORY: Fall, pain TECHNIQUE: 5 view cervical spine FINDINGS: Degenerative disc changes are present. Facet hypertrophy is present. There is severe narrow ing C6-C7 bilaterally. Spondylosis is present. There spinal lamellar line is intact. There is some li mitation due to maxilla over the odontoid. IMPRESSION: 1. Degenerative changes through the cervical spine. No acute osseous abnormality is evident.
[2017-01-12 12:49] LABS: HCT 19.2 % (39.0-53.0)
[2017-01-12 12:50] LABS: HGB 6.4 gm/dL (13.0-17.5); Phosphorous 4.4 mg/dL (2.5-4.5); Potassium 3.9 mmol/L (3.5-5.1); Total Protein 4.4 g/dL (6.3-8.2)
[2017-01-12 12:54] VITALS: BMI 18.7
[2017-01-12 13:15] LABS: Calcium 6.3 mg/dL (8.4-10.2)
[2017-01-12 13:45] LABS: Glucose,Whole Blood 153 mg/dL (75-99)
[2017-01-12 14:39] LABS: Amorphous Sediment,Urine Few /hpf; Appearance,Urine Cloudy (Clear); Bilirubin,Urine Negative (Negative); Glucose,Urine (UA) Negative (Negative); Granular Casts,Urine 13 /lpf (0); Ketones,Urine Negative (Negative); Leukocyte Esterase,Urine Small (Negative); Mucus,Urine Rare /hpf; Nitrite,Urine Negative (Negative); Particle Count 10855; Protein,Urine Trace (Negative); RBC,Urine 5 /hpf (0-5); Specific Gravity,Urine 1.021 (1.001-1.035); UA Billing (MACRO vs. MICRO) MICRO; Urobilinogen,Urine <2.0 mg/dL (<2.0); WBC,Urine 22 /hpf (0-5)
--- NOTE | 2017-01-12 14:41 | P.DS ---
Providers Date of admission: 01/11/17 20:16 Expected date of discharge: 01/12/17 Attending physician: Gee Goel MD Consults: 01/11/17 20:16 Consult Physician Stat Consulting Provider: Annie Adrian Consult Reason/Comments: Elevated troponin Do you want consulting provider notified?: Yes Consult Physician Stat Consulting Provider: Magda Delaney Consult Reason/Comments: Leukocytosis Do you want consulting provider notified?: Yes Consult Physician Stat Consulting Provider: Ab Roa Consult Reason/Comments: Sepsis Do you want consulting provider notified?: Yes 01/12/17 08:42 Consult Physician Routine Consulting Provider: Francisco Leung Consult Reason/Comments: RIGHT SHOULDER TRAUMA, SEVERE PAIN. Do you want consulting provider notified?: Yes 01/12/17 13:53 Consult Physician Routine Consulting Provider: Pancho Serra Consult Reason/Comments: hypotension Do you want consulting provider notified?: Yes Primary care physician: Stated None - Discharge Diagnosis(es) (1) Sepsis Current Visit: Yes Status: Acute (2) Hyperleukocytosis Current Visit: Yes Status: Acute Priority: High (3) Encephalopathy acute Current Visit: Yes Status: Acute (4) Acute kidney injury Current Visit: Yes Status: Acute Priority: High (5) Elevated LFTs Current Visit: Yes Status: Acute (6) Elevated troponin Current Visit: Yes Status: Acute Priority: High (7) Right shoulder pain Current Visit: Yes Status: Acute Priority: High (8) CLL (chronic lymphocytic leukemia) Current Visit: Yes Status: Acute (9) Weakness of both legs Current Visit: Yes Status: Acute (10) Acidosis Current Visit: Yes Status: Acute (11) Anemia Current Visit: Yes Status: Acute (12) Thrombocytopenia Current Visit: Yes Status: Acute Hospital Course: Patient is a 61-year-old male with a past medical history of CLL, coronary artery disease status post stenting, dyslipidemia, and hypertension who is brought in by EMS due to generalized weakness and inability to get out of bed. In the ER he was found to have a leukocytosis of 230, elevated creatinine of 1.6, and elevated liver enzymes. He had a chest x-ray which showed possible interstitial pneumonia. He had an x-ray of his shoulder that showed diffuse swelling, but no fracture. The patient had fallen a few days ago. He had an abdominal ultrasound that was unremarkable. His troponins were noted to be slightly elevated. He was also found to be hypotensive. His fever was 100.3. He was started on IV fluids. He was given a dose of Vanco and Zosyn. Arrangements were made for him to be admitted to the selective care unit. His blood pressure improved after 3 units of IV fluids were given. On initial physical exam he had bilateral lower extremity weakness. There was concern for possible cord compression versus Guillain-Díaz syndrome and a CT of the thoracic and lumbar spine was performed which was negative for spinal cord involvement. It did show multiple pulmonary nodules.. He has not had any urinary retention or bladder incontinence. He had decreased reflexes in the lower extremities and no clonus. He is also been struggling with confusion and is unsure of dating. He was in [facility] for approximately 12 months and was released one month ago. He had no medical care during that time. His last white blood cell count here was in 2014 and was 50. His sister later in the course stated that he been seen by oncology in the past, but she does not know definitive diagnosis had been given. His white blood cell count remained elevated and his hemoglobin began to decrease. His PT was prolonging and his acute kidney injury was progressing. Oncology here was contacted who had concerns for hyperviscosity syndrome and suggested transfer to a facility that would be able to do leukapheresis if needed. He was transferred to the ICU due to low blood pressures. Unit of packed red blood cells was ordered. Fluid boluses were repeated. Critical care was consult for but had not had a chance to see the patient prior to transfer to another facility. He continued to be awake alert and mentating. His sister was there and all questions were answered. We discussed transfer to [facility] he was in agreement. [facility]'s contacted and Dr. Scruggs to accept him in the medical ICU. Arrangements were subsequently made to transfer the patient. Pertinent Studies: CT thoracic and lumbar spine: Multiple pulmonary nodules, no spinal cord impingement or acute fracture Echocardiogram: Ejection fraction 50-55% Right upper extremity venous Doppler: No acute clot but enlarged lymph nodes in the neck CT of the right shoulder: No acute fracture, nonspecific soft tissue edema, extensive axillary lymphadenopathy Abdominal ultrasound: Negative complete the abdominal sonography, no gallstones or dilated duct Patient Condition at Discharge: Good Plan - Discharge Summary New Discharge Prescriptions: No Action Clopidogrel Bisulfate [Clopidogrel] 75 mg PO DAILY Lisinopril [Zestril] 20 mg PO DAILY #60 tab Metoprolol Tartrate [Lopressor] 50 mg PO DAILY #60 tab Nitroglycerin Sl Tabs [Nitrostat] 0.4 mg SUBLINGUAL Q5M PRN #25 tab PRN Reason: Chest Pain Naproxen Sodium [Aleve] 220 mg PO DAILY PRN PRN Reason: Pain [id number] [phone] [Excedrin] 1 tab PO Q4HR PRN PRN Reason: Migraine Headache Discharge Medication List Clopidogrel Bisulfate [Clopidogrel] 75 mg PO DAILY 01/25/15 [History] Lisinopril [Zestril] 20 mg PO DAILY #60 tab 01/28/15 [Rx] Metoprolol Tartrate [Lopressor] 50 mg PO DAILY #60 tab 01/28/15 [Rx] Nitroglycerin Sl Tabs [Nitrostat] 0.4 mg SUBLINGUAL Q5M PRN #25 tab 01/28/15 [Rx ] [id number] [Excedrin] 1 tab PO Q4HR PRN 01/11/17 [History] Naproxen Sodium [Aleve] 220 mg PO DAILY PRN 01/11/17 [History] Follow up Appointment(s)/Referral(s): None,Stated [Primary Care Provider] - 1-2 days Discharge Disposition: OTHER INSTITUTION NOT DEFINED Pending Studies Pending Results: Blood cultures
--- NOTE | 2017-01-12 15:07 | P.CONS ---
History of Present Illness - Reason for Consult Consult date: 01/12/17 Sepsis Requesting physician: Gee Goel - Chief Complaint Weakness and right shoulder pain for 1 week - History of Present Illness Patient is a 61 year male who was transferred from [facility] for further management of underlying sepsis, apparently the patient was taken to the [facility] for generalized weakness and no energy, fever and right shoulder pain the patient's symptom has been going on for about a week, no history of any trauma to the right shoulder, pain describing to be throbbing to dull aching 6-7 out of 10 and no radiation the patient did have significant swelling of the right shoulder joint, with redness, on evaluation at the [facility] the patient noticed to have significantly elevated white count the patient do have history of CLL patient also noticed to have a fever with elevated lactic acid the patient received multiple fluid boluses he was started on Zosyn and subsequently transferred to the [facility]. At this facility the patient did have extensive workup chest x-ray with interstitial infiltrate a CT of the thoracoumbar spine, no specific abnormality in the spine however it did shows innumerable pulmonary nodules within the visualized portion of the lungs, patient has been treated with vancomycin and Zosyn and ID was consulted for further recommendation regarding antibiotic therapy, blood culture were done this morning and is not clear the patient has any blood culture done at the [facility]. Patient was incarcerated for about a year at [facility] just released on 12/21/2016 denies any history of IV drug use Review of Systems Review of system Constitutional: The patient with fever or rigors or chills, the patient does complain of weakness. Eyes: No complaint ENT: No complaint Respiratory: No complaint Cardiovascular: No complaint Gastrointestinal: No complaint Genitourinary: No complaint Musculoskeletal: As per HPI Integumentary: No complaint Endocrine : No complaint Psycologial : No complaint Neurological: No complaint. Past Medical History Past Medical History: Blood Disorder, Coronary Artery Disease (CAD), Hyperlipidemia, Hypertension, Myocardial Infarction (PA), Skin Disorder Additional Past Medical History / Comment(s): PSORIASIS. VARICOSE VEINS. SAW DR STEPHENS RECENTLY R/T SEVERELY ELEV WBC, POSS CCL, BUT NO CURRENT DIAGNOSIS OR TX ; DR Edwin THOMAS AWARE. Last Myocardial Infarction Date:: 3400-2396 EST History of Any Multi-Drug Resistant Organisms: None Reported Past Surgical History: Heart Catheterization With Stent, Joint Replacement Additional Past Surgical History / Comment(s): TOTAL DIMA HIPS. STENT X1. Past Anesthesia/Blood Transfusion Reactions: No Reported Reaction Date of Last Stent Placement:: [id number] EST Past Psychological History: No Psychological Hx Reported Smoking Status: Never smoker Past Alcohol Use History: Unable to Obtain - Past Family History Sister(s) Family Medical History: Cancer Father Sister(s) Additional Family Medical History / Comment(s): CARDIAC PROB Mother Additional Family Medical History / Comment(s): CARDIAC HX Medications and Allergies Home Medications Medication Instructions Recorded Confirmed Type Clopidogrel Bisulfate [Clopidogrel] 75 mg PO DAILY 01/25/15 01/11/17 History Lisinopril [Zestril] 20 mg PO DAILY #60 tab 01/28/15 01/11/17 Rx Metoprolol Tartrate [Lopressor] 50 mg PO DAILY #60 tab 01/28/15 01/11/17 Rx Nitroglycerin Sl Tabs [Nitrostat] 0.4 mg SUBLINGUAL Q5M PRN #25 tab 01/28/15 Rx [id number] [id number] 1 tab PO Q4HR PRN 01/11/17 01/11/17 History [Excedrin] Naproxen Sodium [Aleve] 220 mg PO DAILY PRN 01/11/17 01/11/17 History Allergies Allergy/AdvReac Type Severity Reaction Status Date / Time No Known Allergies Allergy Verified 01/11/17 22:48 Physical Exam Vitals: Vital Signs Temp Pulse Pulse Resp BP BP Pulse Ox 01/12/17 12:00 97.8 F 86 18 88/50 97 01/12/17 10:14 110 H 18 93/53 93 L 01/12/17 08:00 97.8 F 110 H 18 99/51 93 L 01/12/17 04:00 97.6 F 88 18 111/67 92 L 01/12/17 00:00 98.1 F 77 16 80/43 92 L 01/11/17 23:00 97.6 F 92 17 83/44 93 L 01/11/17 22:09 94 L 01/11/17 22:00 100.0 F H 92 20 102/70 94 L 01/11/17 21:23 100.3 F H 96 20 92 L 01/11/17 20:26 103.7 F H 100 20 103/67 92 L 01/11/17 18:58 99.4 F 88 20 106/58 Intake and Output 01/11/17 01/12/17 01/12/17 22:59 06:59 14:59 Intake Total 2120 1525 Balance 2120 1525 Intake: IV 1525 Sodium Chloride 0.45% 1, 525 000 ml @ 75 mls/hr IV . [id number] [facility] Rx#:[id number] Sodium Chloride 0.9% 1, 1000 000 ml @ 999 mls/hr IV . Q1H1M ONE Rx#:[id number] Amount of Fluid Infused ( 2000 ml) Oral 120 Other: Voiding Method Urinal Urinal Incontinent Incontinent # Voids 1 Weight 68.039 kg 56 kg 56 kg Patient Weight 01/13/17 06:59 Weight 56 kg General: The patient is awake and alert, in no distress. Skin: no rashes or lesions are noted no masses palpable. Eye: Pupils are equal, round and reactive to light, there is normal conjunctiva bilaterally. Ears, nose, mouth and throat: There are moist mucous membranes and no oral lesions. Neck: The neck is supple, there is no thyromegaly. Cardiovascular: S1-S2 regular rate and rhythm. No murmur. Respiratory: Unlabored breathing clear to auscultation bilaterally Gastrointestinal: Soft, non-distended, non-tender abdomen without masses or organomegaly noted. Back: There is no tenderness to palpation in the midline. There is no obvious deformity. Musculoskeletal: Right shoulder is significant swollen and red and tender to touch movement at the right shoulder currently limited Psychiatric: Patient is awake and alert and oriented 3, appropriate mood & affect, normal judgment. No signs of meningeal irritation Results CBC & Chem 7: 01/12/17 12:16 01/12/17 12:16 Labs: Abnormal Lab Results - Last 24 Hours (Table) 01/11/17 01/11/17 01/11/17 Range/Units 20:25 20:25 20:25 WBC 231.6 H* (3.8-10.6) k/uL RBC 2.52 L (4.30-5.90) m/uL Hgb 8.7 L (13.0-17.5) gm/dL Hct 24.0 L (39.0-53.0) % RDW 17.1 H (11.5-15.5) % Plt Count (150-450) k/uL Lymphocytes # (Manual) 226.97 H (1.0-4.8) k/uL ESR (0-15) mm/hr PT (9.0-12.0) sec INR (<1.2) Sodium 129 L (137-145) mmol/L Carbon Dioxide 20 L (22-30) mmol/L BUN 49 H (9-20) mg/dL Creatinine 1.60 H (0.66-1.25) mg/dL Glucose 102 H (74-99) mg/dL Calcium 6.7 L (8.4-10.2) mg/dL Phosphorus (2.5-4.5) mg/dL AST 686 H (17-59) U/L ALT 314 H (21-72) U/L Ammonia (<30) umol/L Lactate Dehydrogenase (313-618) U/L Creatine Kinase (55-170) U/L Troponin I 0.088 H* (0.000-0.034) ng/mL C-Reactive Protein (<10.0) mg/L Total Protein 5.1 L (6.3-8.2) g/dL Albumin 2.0 L (3.5-5.0) g/dL Vitamin B12 (239-931) pg/mL 01/11/17 01/11/17 01/12/17 Range/Units 20:25 22:45 08:13 WBC (3.8-10.6) k/uL RBC (4.30-5.90) m/uL Hgb (13.0-17.5) gm/dL Hct (39.0-53.0) % RDW (11.5-15.5) % Plt Count (150-450) k/uL Lymphocytes # (Manual) (1.0-4.8) k/uL ESR (0-15) mm/hr PT 12.6 H (9.0-12.0) sec INR 1.3 H (<1.2) Sodium 130 L (137-145) mmol/L Carbon Dioxide 17 L (22-30) mmol/L BUN 60 H (9-20) mg/dL Creatinine 1.60 H (0.66-1.25) mg/dL Glucose 155 H (74-99) mg/dL Calcium 6.3 L* (8.4-10.2) mg/dL Phosphorus 5.5 H (2.5-4.5) mg/dL AST 383 H (17-59) U/L ALT 247 H (21-72) U/L Ammonia 34 H (<30) umol/L Lactate Dehydrogenase 843 H (313-618) U/L Creatine Kinase 180 H (55-170) U/L Troponin I (0.000-0.034) ng/mL C-Reactive Protein (<10.0) mg/L Total Protein 4.8 L (6.3-8.2) g/dL Albumin 1.9 L (3.5-5.0) g/dL Vitamin B12 >1000 H (239-931) pg/mL 01/12/17 01/12/17 01/12/17 Range/Units 08:13 08:13 08:13 WBC 247.7 H* (3.8-10.6) k/uL RBC 2.27 L (4.30-5.90) m/uL Hgb 7.3 L (13.0-17.5) gm/dL Hct 22.1 L (39.0-53.0) % RDW 16.3 H (11.5-15.5) % Plt Count 145 L (150-450) k/uL Lymphocytes # (Manual) 247.70 H (1.0-4.8) k/uL ESR (0-15) mm/hr PT 13.3 H (9.0-12.0) sec INR 1.4 H (<1.2) Sodium (137-145) mmol/L Carbon Dioxide (22-30) mmol/L BUN (9-20) mg/dL Creatinine (0.66-1.25) mg/dL Glucose (74-99) mg/dL Calcium (8.4-10.2) mg/dL Phosphorus (2.5-4.5) mg/dL AST (17-59) U/L ALT (21-72) U/L Ammonia (<30) umol/L Lactate Dehydrogenase (313-618) U/L Creatine Kinase (55-170) U/L Troponin I 0.097 H* (0.000-0.034) ng/mL C-Reactive Protein (<10.0) mg/L Total Protein (6.3-8.2) g/dL Albumin (3.5-5.0) g/dL Vitamin B12 (239-931) pg/mL 01/12/17 01/12/17 01/12/17 Range/Units 08:13 08:13 12:16 WBC 229.6 H* (3.8-10.6) k/uL RBC 2.03 L (4.30-5.90) m/uL Hgb 6.4 L* (13.0-17.5) gm/dL Hct 19.2 L* (39.0-53.0) % RDW 15.8 H (11.5-15.5) % Plt Count 133 L (150-450) k/uL Lymphocytes # (Manual) (1.0-4.8) k/uL ESR 115 H (0-15) mm/hr PT (9.0-12.0) sec INR (<1.2) Sodium (137-145) mmol/L Carbon Dioxide (22-30) mmol/L BUN (9-20) mg/dL Creatinine (0.66-1.25) mg/dL Glucose (74-99) mg/dL Calcium (8.4-10.2) mg/dL Phosphorus (2.5-4.5) mg/dL AST (17-59) U/L ALT (21-72) U/L Ammonia (<30) umol/L Lactate Dehydrogenase (313-618) U/L Creatine Kinase (55-170) U/L Troponin I (0.000-0.034) ng/mL C-Reactive Protein 325.5 H (<10.0) mg/L Total Protein (6.3-8.2) g/dL Albumin (3.5-5.0) g/dL Vitamin B12 (239-931) pg/mL 01/12/17 Range/Units 12:16 WBC (3.8-10.6) k/uL RBC (4.30-5.90) m/uL Hgb (13.0-17.5) gm/dL Hct (39.0-53.0) % RDW (11.5-15.5) % Plt Count (150-450) k/uL Lymphocytes # (Manual) (1.0-4.8) k/uL ESR (0-15) mm/hr PT 14.3 H (9.0-12.0) sec INR 1.5 H (<1.2) Sodium (137-145) mmol/L Carbon Dioxide (22-30) mmol/L BUN (9-20) mg/dL Creatinine (0.66-1.25) mg/dL Glucose (74-99) mg/dL Calcium (8.4-10.2) mg/dL Phosphorus (2.5-4.5) mg/dL AST (17-59) U/L ALT (21-72) U/L Ammonia (<30) umol/L Lactate Dehydrogenase (313-618) U/L Creatine Kinase (55-170) U/L Troponin I (0.000-0.034) ng/mL C-Reactive Protein (<10.0) mg/L Total Protein (6.3-8.2) g/dL Albumin (3.5-5.0) g/dL Vitamin B12 (239-931) pg/mL Assessment and Plan (1) Sepsis Status: Acute Plan: 1-patient with sepsis in a patient who did have a fever of 10 3F tachycardia and elevated white count is more likely related to his CLL however underlying infection is likely contributing to it the more likely concern will be for a right shoulder septic arthritis however the patient also noticed to have multiple pulmonary nodules with a question of septic emboli the patient did have 2-D echocardiogram that was negative for any vegetation , may need KIRA 2-we'll discuss with orthopedics for aspirate of the right shoulder the fluid should be sent for Gram stain and culture 2-[id number] antibiotics in the form of vancomycin pharmacy to dose target trough of 15 along with Zosyn 4-we'll follow-up on clinical condition and cultures to further adjust medication if needed thank you for discussed it'll falls patient along with you Time with Patient: Greater than 30
[2017-01-12 15:36] VITALS: BP 110/55; PULSE 94; RESP 31
[2017-01-12] MEDS ORDERED: VANCOMYCIN 1,250 MG in SODIUM CHLORIDE 0.9% 250 ML IVPB SCH (18:00)
== END 2017-01-12 16:04 | disposition other institution (70) | DRG 841 ==
LOC: EC 18:55 → 6SEL 20:16 → 6ICU 01-12 13:32
PROVIDERS: ADMIT Hospitalist; ATTEND Hospitalist
DX: C91.10 Chronic lymphocytic leukemia of B-cell type not having achieved remission (principal); N17.9 Acute kidney failure, unspecified; J84.9 Interstitial pulmonary disease, unspecified; E87.2 Acidosis; D69.6 Thrombocytopenia, unspecified; M25.511 Pain in right shoulder; R53.1 Weakness; D64.9 Anemia, unspecified; I25.10 Atherosclerotic heart disease of native coronary artery without angina pectoris; I10 Essential (primary) hypertension; E78.5 Hyperlipidemia, unspecified; R91.8 Other nonspecific abnormal finding of lung field; M25.411 Effusion, right shoulder; L40.9 Psoriasis, unspecified; I83.90 Asymptomatic varicose veins of unspecified lower extremity; Z96.643 Presence of artificial hip joint, bilateral; Z85.9 Personal history of malignant neoplasm, unspecified; Z82.49 Family history of ischemic heart disease and other diseases of the circulatory system; Z79.899 Other long term (current) drug therapy; I25.2 Old myocardial infarction; Z95.5 Presence of coronary angioplasty implant and graft; Z79.82 Long term (current) use of aspirin; Z79.02 Long term (current) use of antithrombotics/antiplatelets
CPT/HCPCS: 36415; 71010; 71020; 72050; 72100; 72129; 72132; 76700; 80053; 80074; 81001; 82140; 82550; 82607; 83605; 83615; 83735; 84100; 84484; 84550; 85025; 85027; 85610; 85652; 85730; 86140; 86850; 86870; 86880; 86900; 86901; 87040; 87077; 87186; 93005; 93306; 96365; 96366; 99285